=== PATIENT | female | born 1930 | race Caucasian/White ===

== ENCOUNTER → 2016-05-10 | Outpatient (CLI) | payer MEDICARE, OTHER | END | disposition home or self-care (01) | LOC: PCVCIMAG 11:47 | PROVIDERS: ATTEND Nuclear Medicine Nuclear Cardiology | DX: I77.1 Stricture of artery (principal) | CPT/HCPCS: 93925 ==

== ENCOUNTER → 2016-06-04 | Outpatient (CLI) | payer MEDICARE, OTHER ==
[~2016-06-04] MED LIST: CEFAZOLIN 2GM PREMIX 50 ML IV ONE; CLOPIDOGREL BISULFATE 75 MG TABLET ONE; DIAZEPAM 10 MG TABLET ONE; FENTANYL PF 100 MCG/2 ML VIAL. ONE; HEPARIN 5,000 UNIT/ML VIAL for PCVC ONE; HYDROCODONE/APAP 5/325MG TABLET. ONE; IODIXANOL 270 MG/ML 100 ML VIAL. ONE; IV NORMAL SALINE 1000ML BAG 1,000 ML ONE; IV NORMAL SALINE 500ML BAG 0 ML ONE; LIDOCAINE 1% Multi-Dose 20 ML VIAL. ONE; MIDAZOLAM HCL 2 MG/2 ML VIAL. ONE
== END | disposition home or self-care (01) ==
LOC: PCVCINTER 07:35
PROVIDERS: ATTEND Nuclear Medicine Nuclear Cardiology
DX: I70.263 Atherosclerosis of native arteries of extremities with gangrene, bilateral legs (principal); I70.1 Atherosclerosis of renal artery; I15.0 Renovascular hypertension; I70.92 Chronic total occlusion of artery of the extremities; L97.829 Non-pressure chronic ulcer of other part of left lower leg with unspecified severity; L97.819 Non-pressure chronic ulcer of other part of right lower leg with unspecified severity
CPT/HCPCS: 36252; 37221; 37223; 75716; 76937; C1725; C1751; C1760; C1769; C1876; C1894; J0690; J1644; J2250; J3010; J7030; J7040

== ENCOUNTER → 2016-06-17 | Outpatient (CLI) | payer MEDICARE, OTHER | END | disposition home or self-care (01) | LOC: PCVCIMAG 08:10 | PROVIDERS: ATTEND Nuclear Medicine Nuclear Cardiology | DX: I65.23 Occlusion and stenosis of bilateral carotid arteries (principal); I87.2 Venous insufficiency (chronic) (peripheral); M79.604 Pain in right leg; M79.605 Pain in left leg | CPT/HCPCS: 93880; 93970 ==

== ENCOUNTER → 2016-06-20 | Outpatient (CLI) | payer MEDICARE, OTHER | END | disposition home or self-care (01) | LOC: PCVCCLINIC 15:30 | PROVIDERS: ATTEND Nuclear Medicine Nuclear Cardiology | DX: I73.9 Peripheral vascular disease, unspecified (principal); I87.2 Venous insufficiency (chronic) (peripheral); I71.2 Thoracic aortic aneurysm, without rupture; I48.91 Unspecified atrial fibrillation; J44.9 Chronic obstructive pulmonary disease, unspecified | CPT/HCPCS: G0463 ==

== ENCOUNTER → 2016-10-08 | Outpatient (CLI) | payer MEDICARE, OTHER ==
--- NOTE | 2016-10-08 09:40 | PCVCIMAG ---
EXAM: AORTOILIAC DUPLEX INDICATION: Peripheral arterial disease FINDINGS: AORTA: Suprarenal aorta measures maximum diameter of 3.3 cm. There is a fusiform infrarenal aortic aneurysm. The infrarenal aorta measures maximum diameter of 3.8 cm. No aortic stenosis. RIGHT COMMON ILIAC ARTERY: Maximum diameter is 1.3 cm. No significant stenosis. RIGHT EXTERNAL ILIAC ARTERY: No significant stenosis. LEFT COMMON ILIAC ARTERY: Maximum diameter is 1.2 cm. No significant stenosis. LEFT EXTERNAL ILIAC ARTERY: No significant stenosis. IMPRESSION: 3.8 cm infrarenal abdominal aortic aneurysm. Previous bilateral iliac artery stents show good patency. LOC:[id number]
== END | disposition home or self-care (01) ==
LOC: PCVCIMAG 08:19
PROVIDERS: ATTEND Nuclear Medicine Nuclear Cardiology
DX: I73.9 Peripheral vascular disease, unspecified (principal); I71.4 Abdominal aortic aneurysm, without rupture; Z95.828 Presence of other vascular implants and grafts
CPT/HCPCS: 93978